=== PATIENT | male | born 1940 | race Caucasian/White ===

== ENCOUNTER 2018-04-01 04:46 | Inpatient (IN) | payer MEDICARE ==
[~2018-04-01] VITALS: Ht 182.9 cm; Wt 99.8 kg
[~2018-04-01 04:46] MED LIST: ASPI-496 PO; ATOR80TA PO; BICA50TA5 PO; CARV12.543 PO; FENO145T32 PO; GLYB5TAB3 PO; LUPRON; METF500T17 PO
--- NOTE | 2018-04-01 04:54 | NUR ---
radiology delay- EKG, RN @ [id number]
[2018-04-01] MEDS ORDERED: ASPIRIN 81 MG TABLET CHEW PO ONE (05:00)
[2018-04-01] MEDS ORDERED: LIRA0.6P2 INJ (05:10)
[2018-04-01] MEDS ORDERED: INSU100C5 SQ-INSULIN (05:10)
[2018-04-01] MEDS ORDERED: CANA1TAB3 PO (05:10)
[2018-04-01] MEDS ORDERED: PIOG15TA4 PO (05:10)
[2018-04-01] MEDS ORDERED: CHOL5000 PO (05:11)
--- NOTE | 2018-04-01 05:17 | NUR ---
PT BACK FROM RAD. PT ON CARDIAC AND VITALS MONITORS. BILAT BEDRAILS UP. PT AT BEDSIDE. WILL CONTINUE TO MONITOR.
[2018-04-01 05:36] LABS: BASOPHILS # (AUTO) 0.04 x10^3/uL (0-0.1); BASOPHILS % (AUTO) 1 % (0-1); EOSINOPHILS # (AUTO) 0.27 x10^3/uL (0-0.4); EOSINOPHILS % (AUTO) 5 % (1-7); LYMPHOCYTES # (AUTO) 1.26 x10^3/uL (1-3.4); LYMPHOCYTES % (AUTO) 24 % (22-44); MD NO; MEAN CORPUSCULAR HEMOGLOBIN 32.2 pg (27.5-34.5); MEAN CORPUSCULAR HGB CONC 33.8 g/dL (33.2-36.2); MEAN CORPUSCULAR VOLUME 95.5 fL (81-97); MEAN PLATELET VOLUME 9.4 fL (7.4-10.4); MONOCYTES % (AUTO) 12 % (2-9); NEUTROPHILS # (AUTO) 3.03 x10^3/uL (1.8-6.8); NEUTROPHILS % (AUTO) 58 % (42-75); PLATELET COUNT 185 x10^3/uL (130-400); RED CELL DISTRIBUTION WIDTH 13.4 % (9.4-14.8)
[2018-04-01] MEDS ORDERED: NITROGLYCERIN OINT 2%, 1GM TP ONE ×2 (05:43→06:00)
[2018-04-01] MEDS ORDERED: MORPHINE SULFATE 4 MG/ML, 1ML ONE ×2 (05:44→07:16)
[2018-04-01 05:48] LABS: ANION GAP 8 mmol/L (5-15); CALCIUM 9.8 mg/dL (8.5-10.1); CHLORIDE 105 mmol/L (98-107); CREATININE 1.86 mg/dL (0.7-1.3)
[2018-04-01 05:52] LABS: TROPONIN I 0.065 ng/mL (0.000-0.045)
[2018-04-01] MEDS ORDERED: MORPHINE SULFATE 4 MG/ML, 1ML IVPush ONE ×2 (06:00→07:30)
--- NOTE | 2018-04-01 06:00 | NUR ---
PT ABLE TO STAND STEADILY AT BEDSIDE TO VOID IN URINAL. PT MEDICATED WITH ORDERED MEDS FOR PAIN.
--- NOTE | 2018-04-01 06:23 | NUR ---
PT REPORTS IMPROVEMENT IN PAIN AFTER PLATE MILL HAND. PT RESTING IN BED AT THIS TIME DOZING OFF AND ON. AT BEDSIDE. PT UP FOR RECHECK. CALL LIGHT WITHIN REACH.
--- NOTE | 2018-04-01 06:52 | NUR ---
received report from [facility]. pt laying on gurney awake & calm, responds approp to staff, NAD, comfort measures provided, at BS, call light within reach.
[2018-04-01] MEDS ORDERED: HEPARIN 5,000 UNITS/ML, 1ML IV PRN (07:00)
[2018-04-01] MEDS ORDERED: HEPARIN 5,000 UNITS/ML, 1ML IV ONE (07:00)
[2018-04-01] MEDS ORDERED: HEPARIN 25,000 UNITS/500ML PMX 500 ML IV PRN (07:00)
--- NOTE | 2018-04-01 07:08 | NUR ---
REPORT CALLED TO JAQUELINE TELLES FOR ROOM [id number]
[2018-04-01] MEDS ORDERED: HEPARIN 25,000 UNITS/500ML PMX 0 ML ONE (07:18)
[2018-04-01 07:45] VITALS: BP 157/83
[2018-04-01] MEDS ORDERED: DOCUSATE 100 MG CAPSULE PO PRN (08:00)
[2018-04-01] MEDS ORDERED: ONDANSETRON 2MG/ML, 2ML IVPush PRN (08:00)
[2018-04-01] MEDS ORDERED: POLYETHYLENE GLYCOL 17 GM PACKET PO PRN (08:00)
[2018-04-01] MEDS ORDERED: ONDANSETRON ODT 4 MG PO PRN (08:00)
[2018-04-01] MEDS ORDERED: hydrALAzine 20 MG/ML, 1ML IVPush PRN (08:00)
[2018-04-01] MEDS ORDERED: BISACODYL 10 MG SUPP PR PRN (08:00)
[2018-04-01] MEDS ORDERED: ZOLPIDEM 5MG TABLET PO PRN (08:00)
[2018-04-01] MEDS ORDERED: ACETAMINOPHEN 325 MG TABLET PO PRN (08:00)
[2018-04-01] MEDS ORDERED: NITROGLYCERIN 0.4 MG/SPRAY SL PRN (08:30)
[2018-04-01] MEDS ORDERED: NITROGLYCERIN 0.4 MG BOTTLE (25 TABS) SL PRN (08:30)
[2018-04-01 09:14] LABS: FREE T4 (FREE THYROXINE) 1.21 ng/dL (0.76-1.46); TROPONIN I 0.289 ng/mL (0.000-0.045)
[2018-04-01] MEDS: SODIUM CHLORIDE 0.9% 1,000 ML IV SCH ×2 (09:50→16:13)
[2018-04-01 10:07] LABS: HEMOGLOBIN A1C 8.4 % (4.2-6.3)
[2018-04-01] MEDS: INSULIN LISPRO 100 UNITS/ML, PEN SQ-INSULIN SCH ×5 (11:52→20:17)
[2018-04-01 14:18] VITALS: BP 152/79
[2018-04-01] MEDS ORDERED: MIDAZOLAM 1 MG/ML, 2ML ONE (15:13)
[2018-04-01] MEDS ORDERED: BIVALIRUDIN 250 MG ONE (15:14)
[2018-04-01] MEDS ORDERED: LIDOCAINE 1%, 20ML ONE (15:14)
[2018-04-01] MEDS ORDERED: FENTANYL PF 100 MCG/2ML ONE (15:14)
[2018-04-01] MEDS ORDERED: TICAGRELOR 90 MG TABLET ONE (15:14)
[2018-04-01 19:55] VITALS: BP 146/76
[2018-04-01] MEDS: LIRAGLUTIDE INJ SCH (20:17)
[2018-04-02] MEDS: SODIUM CHLORIDE 0.9% 1,000 ML IV SCH ×5 (00:13→20:36)
[2018-04-02 02:37] VITALS: BP 147/84
[2018-04-02 06:09] LABS: BASOPHILS # (AUTO) 0.04 x10^3/uL (0-0.1); BASOPHILS % (AUTO) 1 % (0-1); EOSINOPHILS % (AUTO) 3 % (1-7); LYMPHOCYTES # (AUTO) 1.09 x10^3/uL (1-3.4); LYMPHOCYTES % (AUTO) 17 % (22-44); MD NO; MEAN CORPUSCULAR HEMOGLOBIN 32.7 pg (27.5-34.5); MEAN CORPUSCULAR HGB CONC 34.5 g/dL (33.2-36.2); MEAN CORPUSCULAR VOLUME 94.7 fL (81-97); MEAN PLATELET VOLUME 9.3 fL (7.4-10.4); MONOCYTES # (AUTO) 0.65 x10^3/uL (0.2-0.8); MONOCYTES % (AUTO) 10 % (2-9); NEUTROPHILS # (AUTO) 4.32 x10^3/uL (1.8-6.8); NEUTROPHILS % (AUTO) 69 % (42-75); PLATELET COUNT 171 x10^3/uL (130-400); RED CELL DISTRIBUTION WIDTH 13.2 % (9.4-14.8)
[2018-04-02 06:29] LABS: ANION GAP 7 mmol/L (5-15); CALCIUM 8.9 mg/dL (8.5-10.1); CHLORIDE 105 mmol/L (98-107); CHOLESTEROL, TOTAL 251 mg/dL (140-239); CREATININE 1.36 mg/dL (0.7-1.3); TRIGLYCERIDES 423 mg/dL (50-200)
[2018-04-02 06:32] LABS: CHOL/HDL RATIO 9.3; HDL CHOL % 11 % (26-37); HDL CHOLESTEROL (DIRECT) 27 mg/dL (40-60)
[2018-04-02] MEDS: INSULIN LISPRO 100 UNITS/ML, PEN SQ-INSULIN SCH ×6 (07:00→21:22)
[2018-04-02 07:34] VITALS: BP 124/72
[2018-04-02] MEDS: PANTOPROZOLE 40MG TABLET PO SCH (08:07)
[2018-04-02] MEDS: ASPIRIN 81 MG TABLET EC PO SCH (08:07)
[2018-04-02] MEDS: PIOGLITAZONE 15 MG TABLET PO SCH (08:07)
[2018-04-02] MEDS: FENOFIBRATE 145 MG TABLET PO SCH (08:08)
[2018-04-02] MEDS: CARVEDILOL 6.25 MG TABLET PO SCH (08:08)
[2018-04-02] MEDS: METFORMIN HCL PO SCH (08:09)
[2018-04-02] MEDS: CANAGLIFLOZIN PO SCH (08:09)
[2018-04-02] MEDS: CHOLECALCIFEROL 5,000u TAB PO SCH (08:16)
[2018-04-02] MEDS: CLOPIDOGREL 75 MG TABLET PO SCH (10:33)
[2018-04-02 12:31] VITALS: BP 132/79
[2018-04-02 19:45] VITALS: BP 120/71
[2018-04-02] MEDS: LIRAGLUTIDE INJ SCH (20:36)
[2018-04-03 00:41] VITALS: BP 120/70
[2018-04-03 06:05] LABS: BASOPHILS # (AUTO) 0.02 x10^3/uL (0-0.1); BASOPHILS % (AUTO) 1 % (0-1); EOSINOPHILS # (AUTO) 0.25 x10^3/uL (0-0.4); EOSINOPHILS % (AUTO) 5 % (1-7); LYMPHOCYTES # (AUTO) 1.24 x10^3/uL (1-3.4); LYMPHOCYTES % (AUTO) 23 % (22-44); MD NO; MEAN CORPUSCULAR HEMOGLOBIN 32.1 pg (27.5-34.5); MEAN CORPUSCULAR HGB CONC 33.8 g/dL (33.2-36.2); MEAN CORPUSCULAR VOLUME 94.8 fL (81-97); MEAN PLATELET VOLUME 10.1 fL (7.4-10.4); MONOCYTES # (AUTO) 0.57 x10^3/uL (0.2-0.8); MONOCYTES % (AUTO) 11 % (2-9); NEUTROPHILS # (AUTO) 3.23 x10^3/uL (1.8-6.8); NEUTROPHILS % (AUTO) 61 % (42-75); PLATELET COUNT 175 x10^3/uL (130-400); RED BLOOD COUNT 4.06 x10^6/uL (4.38-5.82); RED CELL DISTRIBUTION WIDTH 13.4 % (9.4-14.8)
[2018-04-03 06:20] LABS: CHLORIDE 104 mmol/L (98-107)
[2018-04-03 06:26] LABS: ANION GAP 7 mmol/L (5-15); CALCIUM 9.6 mg/dL (8.5-10.1); CREATININE 1.37 mg/dL (0.7-1.3)
[2018-04-03 06:48] VITALS: BP 124/77
[2018-04-03] MEDS: INSULIN LISPRO 100 UNITS/ML, PEN SQ-INSULIN SCH ×3 (07:00→11:38)
[2018-04-03] MEDS: SODIUM CHLORIDE 0.9% 1,000 ML IV SCH ×2 (07:00→08:13)
[2018-04-03] MEDS: PANTOPROZOLE 40MG TABLET PO SCH (08:41)
[2018-04-03] MEDS: ASPIRIN 81 MG TABLET EC PO SCH (08:41)
[2018-04-03] MEDS: CLOPIDOGREL 75 MG TABLET PO SCH (08:41)
[2018-04-03] MEDS: CHOLECALCIFEROL 5,000u TAB PO SCH (08:41)
[2018-04-03] MEDS: FENOFIBRATE 145 MG TABLET PO SCH (08:41)
[2018-04-03] MEDS: PIOGLITAZONE 15 MG TABLET PO SCH (08:41)
[2018-04-03] MEDS: CARVEDILOL 6.25 MG TABLET PO SCH (08:41)
[2018-04-03] MEDS: CANAGLIFLOZIN PO SCH (08:42)
[2018-04-03] MEDS: METFORMIN HCL PO SCH (08:42)
[2018-04-03] MEDS ORDERED: NITR0.4T SL (12:05)
[2018-04-03] MEDS ORDERED: CLOP75TA PO (12:05)
[2018-04-03 13:06] VITALS: BP 97/63
== END 2018-04-03 13:45 | disposition home or self-care (01) | DRG 280 ==
LOC: ED 05:50 → EDIP 06:34 → 5SO 07:37 → DCLOUNGE 04-03 13:39
PROVIDERS: ADMIT Internal Medicine; ATTEND Internal Medicine
PROC: 4A023N7 Measurement of Cardiac Sampling and Pressure, Left Heart, Percutaneous Approach (ICD-10-PCS; principal; 2018-04-01)
PROC: B2121ZZ Fluoroscopy of Single Coronary Artery Bypass Graft using Low Osmolar Contrast (ICD-10-PCS; 2018-04-01)
PROC: B2111ZZ Fluoroscopy of Multiple Coronary Arteries using Low Osmolar Contrast (ICD-10-PCS; 2018-04-01)
PROC: B2181ZZ Fluoroscopy of Left Internal Mammary Bypass Graft using Low Osmolar Contrast (ICD-10-PCS; 2018-04-01)
PROC: B2151ZZ Fluoroscopy of Left Heart using Low Osmolar Contrast (ICD-10-PCS; 2018-04-01)
DX: I21.4 Non-ST elevation (NSTEMI) myocardial infarction (principal); N17.0 Acute kidney failure with tubular necrosis; C79.51 Secondary malignant neoplasm of bone; I42.9 Cardiomyopathy, unspecified; I25.810 Atherosclerosis of coronary artery bypass graft(s) without angina pectoris; I25.110 Atherosclerotic heart disease of native coronary artery with unstable angina pectoris; C61 Malignant neoplasm of prostate; E11.22 Type 2 diabetes mellitus with diabetic chronic kidney disease; I12.9 Hypertensive chronic kidney disease with stage 1 through stage 4 chronic kidney disease, or unspecified chronic kidney disease; E78.5 Hyperlipidemia, unspecified; I25.2 Old myocardial infarction; K59.00 Constipation, unspecified; N18.2 Chronic kidney disease, stage 2 (mild); Z79.4 Long term (current) use of insulin; Z95.5 Presence of coronary angioplasty implant and graft
CPT/HCPCS: 36415; 71046; 76770; 80048; 80061; 82040; 82962; 83036; 83735; 83880; 84439; 84443; 84484; 85025; 85520; 93005; 93306; 93459; 96374; 99156; 99291; C1760; C1769; C1894; G0378; J0583; J1644; J2250; J3010; J3490; J1815; J7030; Q9967

== ENCOUNTER 2019-07-16 11:46 | Outpatient (CLI) | payer MEDICARE ==
[~2019-07-16 11:46] MED LIST changes: +CANA1TAB3 PO; +CHOL5000 PO; +CLOP75TA PO; +INSU100C5 SQ-INSULIN; +LIRA0.6P2 INJ; +NITR0.4T41 SL; +PIOG15TA69 PO
== END 2019-07-16 23:59 | disposition home or self-care (01) ==
LOC: ROC 11:46
PROVIDERS: ATTEND Radiology Radiation Oncology
DX: C79.51 Secondary malignant neoplasm of bone (principal); I25.10 Atherosclerotic heart disease of native coronary artery without angina pectoris; E11.9 Type 2 diabetes mellitus without complications; K21.9 Gastro-esophageal reflux disease without esophagitis; E78.5 Hyperlipidemia, unspecified; G89.29 Other chronic pain; M48.04 Spinal stenosis, thoracic region; Z85.46 Personal history of malignant neoplasm of prostate
CPT/HCPCS: G0463

== ENCOUNTER → 2019-07-21 | Outpatient (CLI) | payer MEDICARE ==
[~2019-07-21] MED LIST changes: +GADOTERATE 10 MMOL/20 ML SYR ONE
== END | disposition home or self-care (01) ==
LOC: CFH 12:34
PROVIDERS: ATTEND Radiology Radiation Oncology
DX: C79.51 Secondary malignant neoplasm of bone (principal); E11.9 Type 2 diabetes mellitus without complications; M47.814 Spondylosis without myelopathy or radiculopathy, thoracic region; M48.04 Spinal stenosis, thoracic region; Z85.46 Personal history of malignant neoplasm of prostate
CPT/HCPCS: 72157; A9575

== ENCOUNTER → 2020-04-02 | Outpatient (CLI) | payer MEDICARE ==
[~2020-04-02] MED LIST changes: +CARV3.122 PO; +CHOL10003 PO; +EMPA25TA PO; -GADOTERATE 10 MMOL/20 ML SYR ONE
[2020-04-02 09:41] LABS: INTERNATIONAL NORMALIZED RATIO 1.01 (0.93-1.1); PROTHROMBIN TIME 10.7 Seconds (9.6-11.5)
[2020-04-02 09:42] LABS: ANION GAP 4 mmol/L (5-15); CALCIUM 9.5 mg/dL (8.5-10.1); CHLORIDE 109 mmol/L (98-107)
[2020-04-02 09:46] LABS: ALANINE AMINOTRANSFERASE 29 U/L (12-78); ALKALINE PHOSPHATASE 46 U/L (45-117); BILIRUBIN,TOTAL 0.5 mg/dL (0.2-1.0); CREATININE 1.73 mg/dL (0.7-1.3); TOTAL PROTEIN 7.3 g/dL (6.4-8.2)
[2020-04-02 10:00] LABS: BASOPHILS % (AUTO) 1 % (0-1); EOSINOPHILS % (AUTO) 5 % (1-7); LYMPHOCYTES % (AUTO) 26 % (22-44); MEAN CORPUSCULAR HEMOGLOBIN 32.3 pg (27.5-34.5); MEAN CORPUSCULAR HGB CONC 33.1 g/dL (33.2-36.2); MEAN PLATELET VOLUME 9.4 fL (7.4-10.4); MONOCYTES % (AUTO) 12 % (2-9); NEUTROPHILS % (AUTO) 56 % (42-75); PLATELET COUNT 187 x10^3/uL (130-400); RED BLOOD COUNT 3.96 x10^6/uL (4.38-5.82); RED CELL DISTRIBUTION WIDTH 14.4 % (9.4-14.8)
[2020-04-02 10:11] LABS: MD NO
== END | disposition home or self-care (01) ==
LOC: STAR 07:59
PROVIDERS: ATTEND Neurological Surgery
DX: Z01.812 Encounter for preprocedural laboratory examination (principal); Z20.828 Contact with and (suspected) exposure to other viral communicable diseases; M48.02 Spinal stenosis, cervical region; I51.7 Cardiomegaly; Q79.1 Other congenital malformations of diaphragm
CPT/HCPCS: 71046; 80053; 83036; 85025; 85610; 85730; 87635; 93005

== ENCOUNTER 2020-04-08 00:48 | Emergency (ER) | payer MEDICARE ==
[~2020-04-08] VITALS: Ht 185.4 cm; Wt 110.4 kg
[2020-04-08 01:20] LABS: BASOPHILS % (AUTO) 2 % (0-1); EOSINOPHILS % (AUTO) 4 % (1-7); LYMPHOCYTES % (AUTO) 21 % (22-44); MEAN CORPUSCULAR HEMOGLOBIN 32.8 pg (27.5-34.5); MEAN CORPUSCULAR HGB CONC 33.6 g/dL (33.2-36.2); MEAN PLATELET VOLUME 8.8 fL (7.4-10.4); MONOCYTES % (AUTO) 12 % (2-9); NEUTROPHILS % (AUTO) 61 % (42-75); PLATELET COUNT 207 x10^3/uL (130-400); RED BLOOD COUNT 4.07 x10^6/uL (4.38-5.82); RED CELL DISTRIBUTION WIDTH 14.4 % (9.4-14.8)
--- NOTE | 2020-04-08 01:20 | NUR ---
TECH AT BEDSIDE FOR EKG, URINE SENT TO LAB AT THIS TIME.
[2020-04-08 01:21] LABS: MD NO
[2020-04-08] MEDS ORDERED: ONDANSETRON 2MG/ML, 2ML ONE (01:21)
[2020-04-08] MEDS ORDERED: MORPHINE SULFATE 4 MG/ML, 1ML ONE (01:21)
[2020-04-08 01:29] LABS: MICROSCOPIC AUTO
[2020-04-08] MEDS ORDERED: ONDANSETRON 2MG/ML, 2ML IVPush ONE (01:30)
[2020-04-08] MEDS ORDERED: MORPHINE SULFATE 4 MG/ML, 1ML IVPush PRN (01:30)
[2020-04-08 01:32] LABS: ANION GAP 6 mmol/L (5-15); CALCIUM 9.1 mg/dL (8.5-10.1); CHLORIDE 108 mmol/L (98-107); CREATININE 2.07 mg/dL (0.7-1.3)
[2020-04-08 01:33] LABS: ALANINE AMINOTRANSFERASE 25 U/L (12-78); ALBUMIN 3.8 g/dL (3.4-5.0)
[2020-04-08 01:35] LABS: ALKALINE PHOSPHATASE 58 U/L (45-117); BILIRUBIN,TOTAL 0.4 mg/dL (0.2-1.0); TOTAL PROTEIN 7.6 g/dL (6.4-8.2)
[2020-04-08] MEDS ORDERED: LABETALOL 5MG/ML, 20ML IVPush ONE (02:00)
--- NOTE | 2020-04-08 02:10 | NUR ---
PT BACK FROM CT AT THIS TIME
[2020-04-08 04:39] VITALS: BP 145/82
== END 2020-04-08 05:17 | disposition home or self-care (01) ==
LOC: ED 01:18
DX: N13.2 Hydronephrosis with renal and ureteral calculous obstruction (principal); R31.29 Other microscopic hematuria; R10.31 Right lower quadrant pain; I49.3 Ventricular premature depolarization; I10 Essential (primary) hypertension; E11.9 Type 2 diabetes mellitus without complications
CPT/HCPCS: 36415; 74176; 80053; 81001; 83690; 85025; 93005; 96374; 96375; 99285; J2270; J2405

== ENCOUNTER 2020-04-08 05:43 | Inpatient (IN) | payer MEDICARE ==
[~2020-04-08] VITALS: Ht 185.4 cm; Wt 107.0 kg
[2020-04-08] MEDS ORDERED: CHLORHEXIDINE 15 ML UDC MM STA (06:05)
[2020-04-08] MEDS ORDERED: LACTATED RINGERS 1,000 ML IV SCH (06:30)
[2020-04-08] MEDS ORDERED: BUPIVACAINE/PF 0.5% ONE (06:55)
[2020-04-08] MEDS ORDERED: EPINEPHRINE 1 MG/ML, 1ML ONE (06:56)
[2020-04-08] MEDS ORDERED: METHYLENE BLUE 50 MG/10 ML AMP ONE (06:56)
[2020-04-08] MEDS ORDERED: BACITRACIN 50,000 UNIT ONE (06:56)
[2020-04-08] MEDS ORDERED: FENTANYL PF 250 MCG/5ML ONE ×2 (07:00→09:02)
[2020-04-08] MEDS ORDERED: PROPOFOL 50 ML ONE ×3 (07:08→08:40)
[2020-04-08] MEDS ORDERED: CEFAZOLIN 1,000 MG ONE (07:30)
[2020-04-08] MEDS ORDERED: EPHEDRINE 50 MG/ML, 1ML ONE (07:30)
[2020-04-08] MEDS ORDERED: ONDANSETRON 2MG/ML, 2ML ONE (07:30)
[2020-04-08] MEDS ORDERED: SUCCINYLCHOLINE 20 MG/ML, 10ML ONE (07:30)
[2020-04-08] MEDS ORDERED: ROCURONIUM 10 MG/ML,10ML ONE (07:30)
[2020-04-08] MEDS ORDERED: DEXAMETHASONE 4 MG/ML, 1ML ONE (07:30)
[2020-04-08] MEDS ORDERED: VASOPRESSIN 20 UNIT/ML, 1ML ONE (07:30)
[2020-04-08] MEDS ORDERED: HALOPERIDOL 5 MG/ML IV PRN (09:00)
[2020-04-08] MEDS ORDERED: ONDANSETRON 2MG/ML, 2ML IVPush PRN (09:00)
[2020-04-08] MEDS ORDERED: OXYcodone 5 MG/5 ML ORAL.SOL UDC PO PRN (09:00)
[2020-04-08] MEDS ORDERED: LORazepam 2 MG/ML, 1ML IVPush PRN (09:00)
[2020-04-08] MEDS ORDERED: METHOCARBAMOL 1,000 MG in DEXTROSE 5% 100 ML IV PRN (09:00)
[2020-04-08] MEDS ORDERED: hydrALAzine 20 MG/ML, 1ML IV PRN (09:00)
[2020-04-08] MEDS ORDERED: EPHEDRINE 50 MG/ML, 1ML IVPush PRN (09:00)
[2020-04-08] MEDS ORDERED: LABETALOL 5MG/ML, 20ML IV PRN ×2 (09:00→14:00)
[2020-04-08] MEDS ORDERED: ACETAMINOPHEN 325 MG TABLET PO PRN (09:00)
[2020-04-08] MEDS ORDERED: ALBUMIN HUMAN 5% 500 ML ONE (09:57)
[2020-04-08] MEDS ORDERED: OXYcodone 5 MG/5 ML ORAL.SOL UDC ONE (11:37)
[2020-04-08] MEDS ORDERED: HYDROmorphone 1 MG/ML, 1ML INJ ONE ×2 (11:37→11:55)
[2020-04-08] MEDS ORDERED: FENTANYL PF 100 MCG/2ML ONE (11:37)
[2020-04-08] MEDS: FENTANYL PF 100 MCG/2ML IV PRN ×2 (11:38→11:43)
[2020-04-08] MEDS: HYDROmorphone 1 MG/ML, 1ML INJ IVPush PRN ×5 (11:48→12:37)
[2020-04-08 12:16] LABS: BASOPHILS % (AUTO) 1 % (0-1); EOSINOPHILS % (AUTO) 1 % (1-7); LYMPHOCYTES % (AUTO) 14 % (22-44); MEAN CORPUSCULAR HEMOGLOBIN 32.6 pg (27.5-34.5); MEAN CORPUSCULAR HGB CONC 33.4 g/dL (33.2-36.2); MEAN PLATELET VOLUME 8.7 fL (7.4-10.4); MONOCYTES % (AUTO) 11 % (2-9); NEUTROPHILS % (AUTO) 74 % (42-75); PLATELET COUNT 161 x10^3/uL (130-400); RED BLOOD COUNT 3.25 x10^6/uL (4.38-5.82); RED CELL DISTRIBUTION WIDTH 14.3 % (9.4-14.8)
[2020-04-08 12:21] LABS: MD NO
[2020-04-08 13:30] VITALS: BP 128/74
[2020-04-08] MEDS ORDERED: DIPHENHYDRAMINE 25 MG CAPSULE PO PRN (14:00)
[2020-04-08] MEDS ORDERED: PROMETHAZINE 25 MG/ML, 1ML IM PRN (14:00)
[2020-04-08] MEDS ORDERED: DIPHENHYDRAMINE 50 MG/ML, 1ML IVPush PRN (14:00)
[2020-04-08] MEDS ORDERED: DIPHENHYDRAMINE 50 MG/ML, 1ML IM PRN (14:00)
[2020-04-08] MEDS ORDERED: MAGNESIUM HYDROXIDE 8%, 30ML UDC PO PRN (14:00)
[2020-04-08] MEDS ORDERED: ONDANSETRON 2MG/ML, 2ML IV PRN (14:00)
[2020-04-08] MEDS ORDERED: BISACODYL 10 MG SUPP PR PRN (14:00)
[2020-04-08] MEDS ORDERED: HYDROmorphone 2 MG/ML, 1ML IM PRN (14:00)
[2020-04-08] MEDS ORDERED: METHOCARBAMOL 750 MG TABLET PO PRN (14:00)
[2020-04-08] MEDS: CEFAZOLIN PMX 1GM/50ML 50 ML IVPB SCH (17:29)
[2020-04-08] MEDS: CARVEDILOL 3.125 MG TABLET PO SCH (17:32)
[2020-04-08 20:20] VITALS: BP 158/83
[2020-04-09 00:23] VITALS: BP 175/94
[2020-04-09] MEDS: NS + 20MEQ KCL 1,000 ML IV SCH ×2 (00:30→12:56)
[2020-04-09] MEDS: CEFAZOLIN PMX 1GM/50ML 50 ML IVPB SCH (00:30)
[2020-04-09 03:51] VITALS: BP 156/85
[2020-04-09 05:51] LABS: ANION GAP 6 mmol/L (5-15); CALCIUM 9.1 mg/dL (8.5-10.1); CHLORIDE 107 mmol/L (98-107)
[2020-04-09] MEDS: CARVEDILOL 3.125 MG TABLET PO SCH ×4 (06:00→18:18)
[2020-04-09 06:55] VITALS: BP 135/69
[2020-04-09] MEDS: FENOFIBRATE 145 MG TABLET PO SCH ×2 (08:54→09:00)
[2020-04-09] MEDS: TAMSULOSIN 0.4 MG CAP.ER.24H PO SCH ×2 (08:54→09:00)
[2020-04-09] MEDS: EMPAGLIFLOZIN 25 MG PO SCH (08:54)
[2020-04-09] MEDS: SENNA/DOCUSATE TABLET PO SCH ×2 (08:54→09:00)
[2020-04-09] MEDS: PIOGLITAZONE 15 MG TABLET PO SCH (09:00)
[2020-04-09 10:32] LABS: BASOPHILS % (AUTO) 1 % (0-1); EOSINOPHILS % (AUTO) 1 % (1-7); LYMPHOCYTES % (AUTO) 12 % (22-44); MEAN CORPUSCULAR HEMOGLOBIN 33.2 pg (27.5-34.5); MEAN CORPUSCULAR HGB CONC 33.6 g/dL (33.2-36.2); MEAN PLATELET VOLUME 9.4 fL (7.4-10.4); MONOCYTES % (AUTO) 12 % (2-9); NEUTROPHILS % (AUTO) 74 % (42-75); PLATELET COUNT 201 x10^3/uL (130-400); RED BLOOD COUNT 3.34 x10^6/uL (4.38-5.82); RED CELL DISTRIBUTION WIDTH 14.4 % (9.4-14.8)
[2020-04-09 10:36] LABS: MD NO
[2020-04-09 13:03] VITALS: BP 144/75
[2020-04-09 13:22] LABS: BASOPHILS % (AUTO) 1 % (0-1); EOSINOPHILS % (AUTO) 0 % (1-7); LYMPHOCYTES % (AUTO) 10 % (22-44); MEAN CORPUSCULAR HEMOGLOBIN 32.5 pg (27.5-34.5); MEAN CORPUSCULAR HGB CONC 32.4 g/dL (33.2-36.2); MEAN PLATELET VOLUME 8.9 fL (7.4-10.4); MONOCYTES % (AUTO) 15 % (2-9); NEUTROPHILS % (AUTO) 75 % (42-75); PLATELET COUNT 204 x10^3/uL (130-400); RED CELL DISTRIBUTION WIDTH 14.9 % (9.4-14.8)
[2020-04-09 13:31] LABS: MD NO
[2020-04-09 18:36] VITALS: BP 182/96
[2020-04-09] MEDS: INSULIN LISPRO 100 UNITS/ML, PEN SQ-INSULIN SCH (23:45)
[2020-04-10 01:18] VITALS: BP 149/88
[2020-04-10] MEDS: NS + 20MEQ KCL 1,000 ML IV SCH (03:43)
[2020-04-10 06:42] VITALS: BP 153/93
[2020-04-10 07:07] LABS: CALCIUM 9.3 mg/dL (8.5-10.1); CHLORIDE 111 mmol/L (98-107)
[2020-04-10 07:11] LABS: ANION GAP 7 mmol/L (5-15); CREATININE 1.31 mg/dL (0.7-1.3)
[2020-04-10 07:12] LABS: BASOPHILS % (AUTO) 0 % (0-1); EOSINOPHILS % (AUTO) 0 % (1-7); LYMPHOCYTES % (AUTO) 7 % (22-44); MEAN CORPUSCULAR HEMOGLOBIN 32.7 pg (27.5-34.5); MEAN CORPUSCULAR HGB CONC 32.8 g/dL (33.2-36.2); MONOCYTES % (AUTO) 11 % (2-9); NEUTROPHILS % (AUTO) 82 % (42-75); PLATELET COUNT 146 x10^3/uL (130-400); RED BLOOD COUNT 3.19 x10^6/uL (4.38-5.82); RED CELL DISTRIBUTION WIDTH 14.6 % (9.4-14.8)
[2020-04-10 07:28] LABS: MD NO
[2020-04-10] MEDS ORDERED: SODIUM CHLORIDE 0.9% 1,000 ML IV SCH ×2 (08:30)
[2020-04-10] MEDS: EMPAGLIFLOZIN 25 MG PO SCH (09:00)
[2020-04-10] MEDS: PIOGLITAZONE 15 MG TABLET PO SCH (09:00)
[2020-04-10 12:59] VITALS: BP 157/73
[2020-04-10] MEDS: FENOFIBRATE 145 MG TABLET PO SCH (13:31)
[2020-04-10] MEDS: SENNA/DOCUSATE TABLET PO SCH (13:31)
[2020-04-10] MEDS: CARVEDILOL 3.125 MG TABLET PO SCH (13:31)
[2020-04-10] MEDS: TAMSULOSIN 0.4 MG CAP.ER.24H PO SCH (13:35)
[2020-04-10] MEDS: INSULIN LISPRO 100 UNITS/ML, PEN SQ-INSULIN SCH (17:32)
[2020-04-10 18:47] VITALS: BP 144/74
[2020-04-11] MEDS: CARVEDILOL 3.125 MG TABLET PO SCH ×3 (00:31→17:01)
[2020-04-11] MEDS: SODIUM CHLORIDE FLUSH 10ML SYR IVF SCH ×3 (00:31→21:30)
[2020-04-11] MEDS: AMLODIPINE 5 MG TABLET PO SCH ×3 (00:31→21:29)
[2020-04-11 01:49] VITALS: BP 145/75
[2020-04-11] MEDS: OXYcodone/APAP 5/325MG TABLET PO PRN ×2 (01:59→08:20)
[2020-04-11 06:15] LABS: BASOPHILS % (AUTO) 1 % (0-1); EOSINOPHILS % (AUTO) 0 % (1-7); LYMPHOCYTES % (AUTO) 8 % (22-44); MEAN CORPUSCULAR HEMOGLOBIN 33.4 pg (27.5-34.5); MEAN CORPUSCULAR HGB CONC 33.8 g/dL (33.2-36.2); MONOCYTES % (AUTO) 12 % (2-9); NEUTROPHILS % (AUTO) 79 % (42-75); PLATELET COUNT 128 x10^3/uL (130-400); RED BLOOD COUNT 2.79 x10^6/uL (4.38-5.82); RED CELL DISTRIBUTION WIDTH 14.5 % (9.4-14.8)
[2020-04-11 06:20] LABS: ANION GAP 4 mmol/L (5-15); CALCIUM 9.3 mg/dL (8.5-10.1); CHLORIDE 106 mmol/L (98-107); CREATININE 1.19 mg/dL (0.7-1.3)
[2020-04-11 06:28] LABS: MD NO
[2020-04-11] MEDS: INSULIN LISPRO 100 UNITS/ML, PEN SQ-INSULIN SCH ×4 (07:47→21:31)
[2020-04-11 08:00] VITALS: BP 162/80
[2020-04-11] MEDS: TAMSULOSIN 0.4 MG CAP.ER.24H PO SCH (08:18)
[2020-04-11] MEDS: FENOFIBRATE 145 MG TABLET PO SCH (08:19)
[2020-04-11] MEDS: SENNA/DOCUSATE TABLET PO SCH (08:19)
[2020-04-11] MEDS: PIOGLITAZONE 15 MG TABLET PO SCH (08:19)
[2020-04-11] MEDS: EMPAGLIFLOZIN 25 MG PO SCH (08:21)
[2020-04-11] MEDS ORDERED: HYDROmorphone 2 MG/ML, 1ML IM PRN (10:00)
[2020-04-11] MEDS ORDERED: FUROSEMIDE 40 MG/4 ML IV ONE (10:30)
[2020-04-11 13:13] VITALS: BP 130/65
[2020-04-11 17:00] VITALS: BP 142/74
[2020-04-11] MEDS: ACETAMINOPHEN 325 MG TABLET PO PRN ×2 (17:01→22:54)
[2020-04-11 18:39] LABS: MICROSCOPIC AUTO
[2020-04-11 19:03] VITALS: BP 134/66
[2020-04-12 01:41] VITALS: BP 159/71
[2020-04-12] MEDS: CARVEDILOL 3.125 MG TABLET PO SCH ×2 (06:12→16:51)
[2020-04-12] MEDS: ACETAMINOPHEN 325 MG TABLET PO PRN ×2 (06:12→10:42)
[2020-04-12 06:17] LABS: BASOPHILS % (AUTO) 1 % (0-1); EOSINOPHILS % (AUTO) 3 % (1-7); LYMPHOCYTES % (AUTO) 12 % (22-44); MEAN CORPUSCULAR HEMOGLOBIN 32.9 pg (27.5-34.5); MEAN CORPUSCULAR HGB CONC 33.8 g/dL (33.2-36.2); MEAN PLATELET VOLUME 9.2 fL (7.4-10.4); MONOCYTES % (AUTO) 11 % (2-9); NEUTROPHILS % (AUTO) 74 % (42-75); PLATELET COUNT 153 x10^3/uL (130-400); RED BLOOD COUNT 2.93 x10^6/uL (4.38-5.82)
[2020-04-12 06:22] LABS: ANION GAP 4 mmol/L (5-15); CALCIUM 9.4 mg/dL (8.5-10.1); CHLORIDE 99 mmol/L (98-107); CREATININE 1.12 mg/dL (0.7-1.3)
[2020-04-12 06:23] LABS: MD NO
[2020-04-12] MEDS: INSULIN LISPRO 100 UNITS/ML, PEN SQ-INSULIN SCH ×4 (07:00→21:00)
[2020-04-12 07:16] VITALS: BP 155/73
[2020-04-12] MEDS: EMPAGLIFLOZIN 25 MG PO SCH (09:00)
[2020-04-12] MEDS: SENNA/DOCUSATE TABLET PO SCH (10:42)
[2020-04-12] MEDS: TAMSULOSIN 0.4 MG CAP.ER.24H PO SCH (10:42)
[2020-04-12] MEDS: FENOFIBRATE 145 MG TABLET PO SCH (10:42)
[2020-04-12] MEDS: PIOGLITAZONE 15 MG TABLET PO SCH (10:42)
[2020-04-12] MEDS: AMLODIPINE 5 MG TABLET PO SCH ×2 (10:42→21:22)
[2020-04-12] MEDS: SODIUM CHLORIDE FLUSH 10ML SYR IVF SCH ×2 (11:50→21:23)
[2020-04-12 12:13] VITALS: BP 145/71
[2020-04-12 13:04] VITALS: BP 146/88
[2020-04-12] MEDS ORDERED: OXYcodone/APAP 5/325MG TABLET PO PRN (14:00)
[2020-04-12 18:44] VITALS: BP 175/73
[2020-04-13 00:54] VITALS: BP 178/88
[2020-04-13 01:23] VITALS: BP 158/87
[2020-04-13] MEDS: ACETAMINOPHEN 325 MG TABLET PO PRN ×3 (03:06→12:08)
[2020-04-13] MEDS: CARVEDILOL 3.125 MG TABLET PO SCH ×2 (06:19→18:02)
[2020-04-13 06:26] LABS: BASOPHILS % (AUTO) 1 % (0-1); EOSINOPHILS % (AUTO) 3 % (1-7); LYMPHOCYTES % (AUTO) 15 % (22-44); MEAN CORPUSCULAR HEMOGLOBIN 32.7 pg (27.5-34.5); MEAN PLATELET VOLUME 8.8 fL (7.4-10.4); MONOCYTES % (AUTO) 14 % (2-9); NEUTROPHILS % (AUTO) 67 % (42-75); PLATELET COUNT 183 x10^3/uL (130-400); RED BLOOD COUNT 3.22 x10^6/uL (4.38-5.82); RED CELL DISTRIBUTION WIDTH 13.9 % (9.4-14.8)
[2020-04-13 06:30] LABS: MD NO
[2020-04-13 06:32] LABS: ANION GAP 5 mmol/L (5-15); CALCIUM 9.1 mg/dL (8.5-10.1); CHLORIDE 99 mmol/L (98-107)
[2020-04-13 06:58] VITALS: BP 176/77
[2020-04-13] MEDS: INSULIN LISPRO 100 UNITS/ML, PEN SQ-INSULIN SCH ×4 (07:00→20:45)
[2020-04-13] MEDS ORDERED: POTASSIUM CHLORIDE 20 MEQ TAB.ER.PRT PO ONE (07:30)
[2020-04-13] MEDS: SENNA/DOCUSATE TABLET PO SCH (08:11)
[2020-04-13] MEDS: PIOGLITAZONE 15 MG TABLET PO SCH (08:12)
[2020-04-13] MEDS: LISINOPRIL 10 MG TABLET PO SCH (08:12)
[2020-04-13] MEDS: AMLODIPINE 5 MG TABLET PO SCH ×2 (08:12→20:44)
[2020-04-13] MEDS: TAMSULOSIN 0.4 MG CAP.ER.24H PO SCH (08:12)
[2020-04-13] MEDS: FENOFIBRATE 145 MG TABLET PO SCH (08:12)
[2020-04-13] MEDS: EMPAGLIFLOZIN 25 MG PO SCH (09:00)
[2020-04-13 09:04] VITALS: BP 134/63
[2020-04-13] MEDS ORDERED: ACETAMINOPHEN 500 MG TABLET PO PRN (11:00)
[2020-04-13] MEDS: SODIUM CHLORIDE FLUSH 10ML SYR IVF SCH ×2 (12:09→20:45)
[2020-04-13 13:30] VITALS: BP 145/55
[2020-04-13 19:08] VITALS: BP 153/64
[2020-04-14 05:30] LABS: BASOPHILS % (AUTO) 1 % (0-1); EOSINOPHILS % (AUTO) 4 % (1-7); LYMPHOCYTES % (AUTO) 17 % (22-44); MEAN CORPUSCULAR HGB CONC 34.2 g/dL (33.2-36.2); MEAN PLATELET VOLUME 8.3 fL (7.4-10.4); MONOCYTES % (AUTO) 14 % (2-9); NEUTROPHILS % (AUTO) 65 % (42-75); PLATELET COUNT 192 x10^3/uL (130-400); RED BLOOD COUNT 3.22 x10^6/uL (4.38-5.82); RED CELL DISTRIBUTION WIDTH 14.2 % (9.4-14.8)
[2020-04-14 05:34] LABS: MD NO
[2020-04-14 05:35] LABS: ANION GAP 5 mmol/L (5-15); CALCIUM 9.1 mg/dL (8.5-10.1); CHLORIDE 100 mmol/L (98-107); CREATININE 1.06 mg/dL (0.7-1.3)
[2020-04-14] MEDS: CARVEDILOL 3.125 MG TABLET PO SCH (06:06)
[2020-04-14 07:06] VITALS: BP 128/67
[2020-04-14] MEDS: INSULIN LISPRO 100 UNITS/ML, PEN SQ-INSULIN SCH ×2 (08:42→11:53)
[2020-04-14] MEDS: TAMSULOSIN 0.4 MG CAP.ER.24H PO SCH (08:42)
[2020-04-14] MEDS: SENNA/DOCUSATE TABLET PO SCH (08:42)
[2020-04-14] MEDS: AMLODIPINE 5 MG TABLET PO SCH (08:42)
[2020-04-14] MEDS: LISINOPRIL 10 MG TABLET PO SCH (08:43)
[2020-04-14] MEDS: FENOFIBRATE 145 MG TABLET PO SCH (08:43)
[2020-04-14] MEDS: EMPAGLIFLOZIN 25 MG PO SCH (08:43)
[2020-04-14] MEDS: ACETAMINOPHEN 325 MG TABLET PO PRN (08:49)
[2020-04-14] MEDS: PIOGLITAZONE 15 MG TABLET PO SCH (08:49)
[2020-04-14] MEDS: SODIUM CHLORIDE FLUSH 10ML SYR IVF SCH (08:50)
[2020-04-14] MEDS ORDERED: MODAFINIL 100 MG TABLET PO SCH (09:00)
[2020-04-14] MEDS ORDERED: POTASSIUM CHLORIDE 20 MEQ TAB.ER.PRT PO ONE (10:00)
[2020-04-14 13:25] VITALS: BP 130/67
== END 2020-04-14 13:45 | disposition home health service (06) | DRG 28 ==
LOC: ORIP 05:43 → 4NE 13:30
PROVIDERS: ADMIT Neurological Surgery; ATTEND Hospitalist
PROC: 01N10ZZ Release Cervical Nerve, Open Approach (ICD-10-PCS; 2020-04-08)
PROC: 00NW0ZZ Release Cervical Spinal Cord, Open Approach (ICD-10-PCS; 2020-04-08)
PROC: 0RG10K1 Fusion of Cervical Vertebral Joint with Nonautologous Tissue Substitute, Posterior Approach, Posterior Column, Open Approach (ICD-10-PCS; 2020-04-08)
PROC: 00QT0ZZ Repair Spinal Meninges, Open Approach (ICD-10-PCS; 2020-04-08)
PROC: 00BT0ZZ Excision of Spinal Meninges, Open Approach (ICD-10-PCS; principal; 2020-04-08 07:30)
DX: G93.0 Cerebral cysts (principal); G93.41 Metabolic encephalopathy; J96.01 Acute respiratory failure with hypoxia; G99.2 Myelopathy in diseases classified elsewhere; C79.51 Secondary malignant neoplasm of bone; N17.9 Acute kidney failure, unspecified; N13.8 Other obstructive and reflux uropathy; N13.2 Hydronephrosis with renal and ureteral calculous obstruction; M48.02 Spinal stenosis, cervical region; E11.22 Type 2 diabetes mellitus with diabetic chronic kidney disease; E87.70 Fluid overload, unspecified; I25.10 Atherosclerotic heart disease of native coronary artery without angina pectoris; N18.9 Chronic kidney disease, unspecified; M48.04 Spinal stenosis, thoracic region; I25.5 Ischemic cardiomyopathy; I25.82 Chronic total occlusion of coronary artery; M47.9 Spondylosis, unspecified; I12.9 Hypertensive chronic kidney disease with stage 1 through stage 4 chronic kidney disease, or unspecified chronic kidney disease; Z87.442 Personal history of urinary calculi; Z85.46 Personal history of malignant neoplasm of prostate
CPT/HCPCS: 36415; 71045; 72040; 76770; 80048; 81001; 82140; 82330; 82803; 82947; 82962; 84132; 84145; 84295; 85014; 85025; 86850; 86900; 88305; 95938; 95941; C1713; G0378; J0171; J0690; J1100; J1170; J1940; J2270; J2405; J2704; J3010; J3480; P9045; Q9968; C1781; J0330; J1815; J2800; J7120